=== PATIENT | male | born 1985 | race Caucasian/White ===

== ENCOUNTER → 2016-09-05 | Day surgery (SDC) | payer OTHER ==
[~2016-09-05] VITALS: Ht 172.7 cm; Wt 77.1 kg
[~2016-09-05] MED LIST: 0.9% Sodium Chloride 1,000 ML IV ONE; PANT40TA2 PO; PROP20TA5 PO; SUCR1TAB30 PO; fentaNYL-PF 50 mCg/mL 2 mL Inj ONE
[2016-09-05 15:51] VITALS: BP 116/76; PULSE 69; RESP 16; O2SAT 97
[2016-09-05 17:38] VITALS: BP 129/77; PULSE 68; O2SAT 94
[2016-09-05 17:48] VITALS: BP 117/69; PULSE 77; O2SAT 97
[2016-09-05 17:58] VITALS: BP 125/75; PULSE 80; RESP 16; O2SAT 98
--- NOTE | 2016-09-05 19:01 | ENDO ---
[address] [address] ENDOSCOPY PROCEDURE PATIENT: ELISE KOO : 1985 MR#: [id number] ADMIT: 09/05/2016 JOB ID: [id number] DATE: 09/05/2016 PROCEDURE: Esophagogastroduodenoscopy (EGD). INDICATION: Hematemesis and also intractable hiccups. Patient's ASA classification is one. Mallampati score is two. MEDICATIONS: please see nurse's notes for sedation details INSTRUMENT USED: GIF H 190. PROCEDURE DETAILS: After informed consent was obtained, the patient was brought into the GI suite, where he was placed on oxygen via nasal cannula and monitored with continuous pulse oximeter, telemetry, and blood pressure monitoring. A time-out was performed, then he was placed in the left lateral decubitus position. Medications were administered for sedation. A bite block was placed. The standard EGD scope was inserted through the bite block and advanced through the bite block without difficulty to the second portion of the duodenum. FINDINGS: 1. Normal appearing duodenal bulb, first and second portion. 2. Normal-appearing pylorus, antrum, and gastric body. 3. Retroflexed views in the gastric body revealed a normal-appearing cardia and fundus. 4. Multiple biopsies were obtained throughout the antrum and body of the stomach. 5. The GE junction was at 44 cm and there was evidence of ulceration that extended to 43 cm. Appearance was consistent with LA Class A ulcerative esophagitis. The remainder of the esophagus appeared otherwise unremarkable. IMPRESSION: LA Class A ulcerative esophagitis. RECOMMENDATIONS: 1. Await biopsy results. 2. Reflux precautions. 3. Continue PPI. 4. Trial of baclofen for hiccups. COMPLICATIONS: None. ESTIMATED BLOOD LOSS: Less than 5 mL. CC: Audrey Winchester MD [facility] CENTERFrederic
--- NOTE | 2016-09-11 09:32 | PATH ---
SURGICAL PATHOLOGY Attending Physician:Angelique Horvath CASE STATUS: Signed Out PATIENT NAME: ELISE KOO PID: [id number] : 1985 DATE COLLECTED:09/05/2016 00:00 SPECIMEN: Gastric, Biopsy CLINICAL HISTORY: 1). GASTRIC - R/O H.PYLORI FINAL DIAGNOSIS: 1.GASTRIC BIOPSY: BODY-TYPE MUCOSA WITH NO DIAGNOSTIC ALTERATIONS. Negative for Helicobacter organisms on H&E stains. Negative for intestinal metaplasia. Negative for dysplasia and malignancy. Immunohistochemical stains for Helicobacter are pending, addendum to follow. ICD10 R10.9 GROSS DESCRIPTION: Received in formalin, labeled with the patient' s name and "gastric biopsy", are multiple fragments of padilla, soft tissue ranging in size from 0.1 x 0.1 x 0.1 cm to 0.2 x 0.1 x 0.1 cm. All fragments are totally submitted in one cassette. ([id number]) MICRO DESCRIPTION: See diagnosis. ICD-9 CODES: CPT CODES: 1: 52694, 74505 PROCEDURE/ADDENDA: Immunohistochemistry SPI Interpretation {Not Entered} Results-Comments This addendum is issued to report the results of immunohistochemical staining for Helicobacter pylori. The gastric mucosa was stained with monoclonal antibody to Helicobacter pylori (SP48). Positive and negative controls stain appropriately. Result: The patient tissue shows no Helicobacter staining. Interpretation: The gastric mucosa is negative for Helicobacter pylori by immunohistochemical stains. This test was developed and its performance characteristics determined by [facility]. It has not been cleared or approved by the U. [place]. Food and Drug Administration. The FDA has determined that such clearance or approval is not necessary. This test is used for clinical purposes. It should not be regarded as investigational or for research. Electronically Signed Out Brenna Ross MD Electronically Signed Out Brenna Ross MD [facility], [place] [address] Technical component performed at [facility], [address], [place], [address]
== END | disposition home or self-care (01) ==
LOC: END 00:20
PROVIDERS: ATTEND Internal Medicine Gastroenterology
DX: K22.10 Ulcer of esophagus without bleeding (principal); K92.0 Hematemesis; K92.2 Gastrointestinal hemorrhage, unspecified; R10.13 Epigastric pain
CPT/HCPCS: 43239; G0500; J2250; J3010; J7030